=== PATIENT | female | born 1995 ===

== ENCOUNTER 2020-06-19 10:09 | Emergency (ER) | payer OTHER ==
[~2020-06-19] VITALS: Ht 170.2 cm; Wt 108.9 kg
[2020-06-19] MEDS ORDERED: LIDOCAINE 1% 5ML-MPF INJ ONE (10:30)
[2020-06-19 11:23] VITALS: BP 122/78
== END 2020-06-19 11:22 | disposition home or self-care (01) ==
LOC: ER 10:28
DX: L05.01 Pilonidal cyst with abscess (principal)
CPT/HCPCS: 99283